=== PATIENT | male | born 1990 | race Caucasian/White ===

== ENCOUNTER 2017-10-05 20:19 | Emergency (ER) | payer BC, SELFPAY, OTHER ==
[2017-10-05] MEDS: CEPHALEXIN 500 MG CAP PO (22:30)
== END 2017-10-05 23:25 | disposition home or self-care (01) ==
LOC: M ED 20:19
DX: L60.0 Ingrowing nail (principal); L03.032 Cellulitis of left toe; Z87.891 Personal history of nicotine dependence
CPT/HCPCS: 99282